=== PATIENT | female | born 1975 | race Caucasian/White ===

== ENCOUNTER 2018-06-27 07:49 | Day surgery (SDC) | payer OTHER ==
[2018-06-27 08:25] VITALS: BMI 34.9
--- NOTE | 2018-06-27 09:11 | CP.SDSHP ---
Same Day Surgery H & P - History Proposed Procedure: EGD Pre-Op Diagnosis: SEE NOTES - Previous Medical/Surgical History Misc: Other Pain: 4.Moderate Pain - Allergies Allergies: Allergies apple Allergy (Verified 06/27/18 08:24) ITCHING throat itches, swells - Physical Exam General Appearance: N Vital Signs: Vital Signs 06/27/18 07:45 Temperature 97.5 F L Pulse Rate 74 Respiratory 16 Rate Blood Pressure 110/62 O2 Sat by Pulse 98 Oximetry Mental Status: Alert & Oriented x3 Neuro: WNL Heart: WNL Lungs: WNL GI: Other - {Optional Preform as Required} Breast: WNL Abdomen: Other Rectal: Other Integument: WNL : WNL Ortho: WNL ENT: WNL - Impression Pt. Evaluated Today:Candidate for Anesthesia & Procedure: Yes - Date & Time Time: 09:11 Short Stay Discharge - Short Stay Discharge Admitting Diagnosis/Reason for Visit: GASTRIC ULCER, UNSP ACUTE OR CHRONIC, W/O HEMOR Disposition: HOME/ ROUTINE
[2018-06-27] MEDS ORDERED: Lactated Ringer's 500 ML IV ONE ×2 (09:15)
[2018-06-27] MEDS ORDERED: Propofol 10 mg/ml Inj (20 ML) ONE (09:19)
[2018-06-27] MEDS ORDERED: Belladonna-Phenobarbital PO STA (09:20)
[2018-06-27] MEDS ORDERED: Lidocaine Hydrochloride 10 ML INJ ONE (09:31)
[2018-06-27 11:49] VITALS: TEMP 98; O2SAT 100
[2018-06-27 11:50] VITALS: PULSE 75
[2018-06-27 12:18] VITALS: BP 125/80; RESP 20
== END 2018-06-27 10:30 | disposition home or self-care (01) ==
LOC: C.ENDO 07:49
PROVIDERS: ATTEND Specialist
DX: K25.9 Gastric ulcer, unspecified as acute or chronic, without hemorrhage or perforation (principal); K29.50 Unspecified chronic gastritis without bleeding; K29.80 Duodenitis without bleeding; K44.9 Diaphragmatic hernia without obstruction or gangrene
CPT/HCPCS: 43239; 84703; 88305; 88342; J2405; J2704; J2765; J7120